=== PATIENT | female | born 1935 | race African-American/Black ===

== ENCOUNTER → 2016-05-15 | Outpatient (CLI) | payer MEDICARE, BC, OTHER ==
[2016-05-15 13:15] LABS: ANION GAP 11 (5-19); BLOOD UREA NITROGEN 16 mg/dL (7-20); CALCIUM 9.5 mg/dL (8.4-10.2); CARBON DIOXIDE 24 mmol/L (22-30); CHLORIDE 107 mmol/L (98-107); CREATININE RESULT 1.09 mg/dL (0.52-1.25); GLUCOSE 89 mg/dL (75-110); POTASSIUM 3.8 mmol/L (3.6-5.0); SODIUM 142.2 mmol/L (137-145)
== END ==
LOC: OD 11:37
PROVIDERS: ATTEND Ophthalmology
DX: I10 Essential (primary) hypertension (principal)
CPT/HCPCS: 36415; 80048

== ENCOUNTER 2016-08-31 12:13 | Emergency (ER) | payer MEDICARE, BC, OTHER ==
[2016-08-31 12:20] VITALS: BP 211/86
== END 2016-08-31 12:29 | disposition left against medical advice (07) ==
LOC: ER 12:13
DX: Z53.21 Procedure and treatment not carried out due to patient leaving prior to being seen by health care provider (principal)

== ENCOUNTER 2017-07-04 14:46 | Emergency (ER) | payer MEDICARE, BC, OTHER ==
--- NOTE | 2017-07-04 16:15 | ER Document Report ---
ED General - General Chief Complaint: Medication Refill Stated Complaint: FOOT PAIN Time Seen by Provider: 07/04/17 15:42 Mode of Arrival: Ambulatory Information source: Patient TRAVEL OUTSIDE OF THE [place] IN LAST 30 DAYS: No - HPI Patient complains to provider of: methadone refill Notes: Patient is here with complaints of bilateral feet pain. She states that she normally takes methadone which is prescribed by Dr. cadence Puckett at nighttime to help her sleep due to her chronic pain. She is currently out of her medication. She states that she has an appointment with them in 6 days. She is having trouble sleeping due to pain and is here requesting some pain medication. In reviewing her records, she has had 2 prescriptions of methadone filled in the last 6 months. She typically is able to make this medication last for over 3 months. She has no medication currently and is having trouble sleeping due to her pain. She denies any new injuries or falls. No fever or redness. No numbness, tingling, weakness. She denies any chest pain or shortness of breath. She denies any nausea, vomiting, diarrhea. No withdrawal type symptoms. She denies any other complaints at this time. - Related Data Allergies/Adverse Reactions: nalbuphine HCl [From Nubain] Allergy (Mild, Verified 07/04/17 14:51) itching codeine [Codeine] Allergy (Verified 07/04/17 14:51) Generalized Itching Past Medical History - Social History Smoking Status: Unknown if Ever Smoked Family History: Reviewed & Not Pertinent - Past Medical History Cardiac Medical History: Reports: Hx Hypertension - medicated Denies: Hx Heart Attack Pulmonary Medical History: Denies: Hx Asthma Neurological Medical History: Denies: Hx Cerebrovascular Accident, Hx Seizures Renal/ Medical History: Denies: Hx Peritoneal Dialysis GI Medical History: Reports: Hx Hiatal Hernia. Denies: Hx Hepatitis, Hx Ulcer Infectious Medical History: Denies: Hx Hepatitis Past Surgical History: Reports: Hx Hysterectomy. Denies: Hx Mastectomy, Hx Open Heart Surgery, Hx Pacemaker Review of Systems - Review of Systems -: Yes All other systems reviewed and negative Physical Exam - Vital signs Vitals: Temp Pulse Resp BP Pulse Ox 97.8 F 62 14 194/71 H 100 07/04/17 15:14 07/04/17 15:14 07/04/17 15:14 07/04/17 15:14 07/04/17 15:14 - Notes Notes: GENERAL: alert, cooperative, nontoxic, no distress. HEAD: normocephalic, atraumatic EYES: conjunctiva pink without discharge, no external redness or swelling. EARS: no external swelling, no external redness NOSE: atraumatic, no external swelling MOUTH/THROAT: mucous membranes moist and pink NECK: soft, supple, full range of motion, no meningismus. CHEST: no distress, lungs clear and equal throughout. No wheezing, rales, rhonchi. CARDIAC: regular rate and rhythm, no murmur, normal capillary refill, normal pulses. BACK: full range of motion, no CVA tenderness. EXTREMITIES: full range of motion of all extremities. No redness, no swelling. Normal pulses and sensation to the bilateral feet. No significant abnormality noted. NEURO: alert and oriented 3, no focal deficits, full range of motion of all extremities. PYSCH: appropriate mood, affect. Patient is cooperative. SKIN: pink, warm, dry, no rash. Course - Re-evaluation Re-evalutation: 07/04/17 16:11 Patient is nontoxic appearing with stable vitals. Patient is here with complaints of chronic feet pain. Dr. Alton Puckett and is given methadone, but she has not had any methadone and is having worsening pain and having difficulty sleeping so she is here requesting a refill of her methadone. In reviewing her records, she has had 2 prescriptions for methadone in the last 6 months by the same provider. This usually lasts her over 3 months. She has an appointment in 6 days with her pain specialist. Explained that typically from the emergency department we are unable to refill chronic pain medication. We are not able to refill methadone. I explained that she may have a pain contract with her doctor and that if she feels a prescription from another provider, she may be breaking his contract and be fired from the pain specialist practice. She states that she does not have any such contract. I will prescribe the patient 6 Wheaton that she can take at nighttime to help with her pain. She will be instructed that she can not come back to the emergency department for further refills of her pain medication but that we can help her out this 1 time. She verbalized an understanding of this. She has no signs of infection or other new injuries. She states that the pain she is having her feet is her normal chronic pain. The patient is noted to have elevated blood pressure during today's emergency department visit. The patient was informed of this finding. The patient was instructed that this may be related to pre-hypertension and requires further evaluation with a primary care provider. The patient has no hypertensive symptoms at this time. The patient's emergency department workup and current diagnosis were explained to the patient and or family. Follow-up instructions were provided. Medications if prescribed were discussed. Instructions for when to return to the emergency department including specific worrisome symptoms were discussed with the patient and/or family. - Vital Signs Vital signs: Temp Pulse Resp BP Pulse Ox 97.8 F 62 14 194/71 H 100 07/04/17 15:14 07/04/17 15:14 07/04/17 15:14 07/04/17 15:14 07/04/17 15:14 Discharge - Discharge Clinical Impression: Chronic foot pain Qualifiers: Laterality: unspecified laterality Qualified Code(s): M79.673 - Pain in unspecified foot; G89.29 - Other chronic pain; G89.29 - Other chronic pain Condition: Stable Disposition: HOME, SELF-CARE Instructions: Chronic Pain Control ([facility]) Additional Instructions: Take medication as prescribed. Follow-up with your doctor as scheduled on Friday. Follow-up sooner for increasing pain, fever, redness, numbness, tingling, weakness, chest pain, shortness of breath, or for any further concerns. Emergency department typically does not refill pain medication for chronic pain, he will need to see your doctor in order to have any further prescriptions. Your blood pressure was elevated during today's visit. Have this rechecked with your doctor. Prescriptions: Hydrocodone/Acetaminophen [Wheaton 5-325 mg Tablet] 1 tab PO QHS PRN #6 tab PRN Reason: Forms: Elevated Blood Pressure Referrals: [facility] [Provider Group] - Follow up as needed
[2017-07-04 16:47] VITALS: BP 182/78
== END 2017-07-04 16:47 | disposition home or self-care (01) ==
LOC: ER 14:46
DX: Z76.0 Encounter for issue of repeat prescription (principal); M79.671 Pain in right foot; M79.672 Pain in left foot; I10 Essential (primary) hypertension; G89.29 Other chronic pain
CPT/HCPCS: 99283

== ENCOUNTER 2017-07-19 04:51 | Emergency (ER) | payer MEDICARE, BC, OTHER ==
[2017-07-19] MEDS ORDERED: ASPIRIN 81 MG TABLET, CHEWABLE PO ONE (05:31)
--- NOTE | 2017-07-19 05:39 | ER Document Report ---
ED Medical Screen (RME) - General Chief Complaint: Pain All Over Stated Complaint: BODY ACHE /CHEST PAIN Mode of Arrival: Ambulatory Information source: Patient Notes: Patient is a 81-year-old female who presents with complaints of chest pain and bilateral leg pain. Patient reports that about 3-4 weeks ago her pain management doctor, Dr. Johnson in [place], took her off of her methadone that she has been taking for years. Patient reports that since this time she has been having worsening pain to her bilateral feet and extends up into her bilateral knees. Patient also reports that she has been having chest pain with nausea. Patient states that this is a nonradiating pain and describes as a "dry" pain. Patient denies any cardiac history. Patient reports that she does not have a primary care provider. I have greeted and performed a rapid initial assessment of this patient. A comprehensive ED assessment and evaluation of the patient, analysis of test results and completion of the medical decision making process will be conducted by additional ED providers. TRAVEL OUTSIDE OF THE [place] IN LAST 30 DAYS: No - Related Data Allergies/Adverse Reactions: nalbuphine HCl [From Nubain] Allergy (Mild, Verified 07/19/17 05:48) itching codeine [Codeine] Allergy (Verified 07/19/17 05:48) Generalized Itching Past Medical History - Past Medical History Cardiac Medical History: Reports: Hx Hypertension - medicated Denies: Hx Heart Attack Pulmonary Medical History: Denies: Hx Asthma Neurological Medical History: Denies: Hx Cerebrovascular Accident, Hx Seizures Renal/ Medical History: Denies: Hx Peritoneal Dialysis GI Medical History: Reports: Hx Hiatal Hernia. Denies: Hx Hepatitis, Hx Ulcer Infectious Medical History: Denies: Hx Hepatitis Past Surgical History: Reports: Hx Hysterectomy, Hx Orthopedic Surgery - back surgery. Denies: Hx Mastectomy, Hx Open Heart Surgery, Hx Pacemaker Physical Exam - Vital signs Vitals: Temp Pulse Resp BP Pulse Ox 98.3 F 90 18 185/98 H 99 07/19/17 05:01 07/19/17 05:01 07/19/17 05:01 07/19/17 05:01 07/19/17 05:01 - Cardiovascular Rhythm: Regular Heart sounds: S1 appreciated, S2 appreciated Pulses: Normal: Radial - Extremities General lower extremity: Normal inspection, Normal strength Course - Vital Signs Vital signs: Temp Pulse Resp BP Pulse Ox 98.3 F 98 18 185/98 H 99 07/19/17 05:01 07/19/17 05:32 07/19/17 05:01 07/19/17 05:01 07/19/17 05:01
--- NOTE | 2017-07-19 06:30 | ER Document Report ---
ED General Pain - General Chief Complaint: Pain All Over Stated Complaint: BODY ACHE /CHEST PAIN Time Seen by Provider: 07/19/17 05:39 Mode of Arrival: Ambulatory Notes: History of complain-81 years old female comes in with burning sensation of the feet and pain whenever she rates the leg to go to sleep. As long as the leg is down and walking the pain is less. She was here a few weeks ago and was given 6 tablets of gabapentin. She says when she took that pill she did not have any pain or discomfort. No injuries. REVIEW OF SYSTEMS: CONSTITUTIONAL : Denies fever, chills, or sweats. Denies recent illness. EENT: Denies eye, ear, throat, or mouth pain or symptoms. Denies nasal or sinus congestion or discharge. Denies throat, tongue, or mouth swelling or difficulty swallowing. CARDIOVASCULAR: Denies chest pain. Denies palpitations or racing or irregular heart beat. Denies ankle edema. RESPIRATORY: Denies cough, cold, or chest congestion. Denies shortness of breath, difficulty breathing, or wheezing. GASTROINTESTINAL: Denies abdominal pain or distention. Denies nausea, vomiting , or diarrhea. Denies blood in vomitus, stools, or per rectum. Denies black, tarry stools. Denies constipation. GENITOURINARY: Denies difficulty urinating, painful urination, burning, frequency, blood in urine, or discharge. FEMALE GENITOURINARY: Denies vaginal bleeding, heavy or abnormal periods, irregular periods. Denies vaginal discharge or odor. MUSCULOSKELETAL: Denies back or neck pain or stiffness. Denies joint pain or swelling. SKIN: Denies rash, lesions or sores. HEMATOLOGIC : Denies easy bruising or bleeding. LYMPHATIC: Denies swollen, enlarged glands. NEUROLOGICAL: Denies confusion or altered mental status. Denies passing out or loss of consciousness. Denies dizziness or lightheadedness. Denies headache. Denies weakness or paralysis or loss of use of either side. Denies problems with gait or speech. Denies sensory loss, numbness, or tingling. Denies seizures. PSYCHIATRIC: Denies anxiety or stress. Denies depression, suicidal ideation, or homicidal ideation. ALL OTHER SYSTEMS REVIEWED AND NEGATIVE. PHYSICAL EXAMINATION: GENERAL: Well-appearing, well-nourished and in no acute distress. HEAD: Atraumatic, normocephalic. EYES: Pupils equal round and reactive to light, extraocular movements intact, conjunctiva are normal. ENT: Nares patent, oropharynx clear without exudates. Moist mucous membranes. NECK: Normal range of motion, supple without lymphadenopathy LUNGS: Breath sounds clear to auscultation bilaterally and equal. No wheezes rales or rhonchi. HEART: Regular rate and rhythm without murmurs ABDOMEN: Soft, nontender, nondistended abdomen. No guarding, no rebound. No masses appreciated. Female : deferred Musculoskeletal: Normal range of motion, no pitting or edema. No cyanosis. Both dorsalis pedis pulses are normal and bounding. NEUROLOGICAL: Cranial nerves grossly intact. Normal speech, normal gait. Normal sensory, motor exams PSYCH: Normal mood, normal affect. SKIN: Warm, Dry, normal turgor, no rashes or lesions noted. Dictation was performed using [email or web address] voice recognition software TRAVEL OUTSIDE OF THE [place] IN LAST 30 DAYS: No - HPI Onset: Other - For a long time Onset/Duration: Gradual. denies: Sudden, Constant, Intermittent, Persistent, Waxing and waning, Better, Worse, Gone Quality of pain: Achy, Burning. denies: No pain, Cramping, Dull, Fullness, Pressure, Sharp, Stabbing, Throbbing, Other Severity: Moderate Pain Level: 3 Context: Chronic problem. denies: New onset, General body pain, Joint pain, Cold exposure, Recent physical stress, Recent emotional stress, Recent illness, Other Associated symptoms: denies: None, Fever, Chills, Sweating, Muscle aches, Other Exacerbated by: Supine. denies: Denies, Sitting, Standing, Movement, Walking, Coughing, Deep breathing, Food, Other Relieved by: Standing. denies: Denies, Supine, Sitting, Remaining still, Antacids, Food, Other Similar symptoms previously: Yes Recently seen / treated by doctor: Yes - Related Data Allergies/Adverse Reactions: nalbuphine HCl [From Nubain] Allergy (Mild, Verified 07/19/17 05:48) itching codeine [Codeine] Allergy (Verified 07/19/17 05:48) Generalized Itching Past Medical History - General Information source: Patient - Social History Smoking Status: Unknown if Ever Smoked Chew tobacco use (# tins/day): No Smoking Education Provided: No Frequency of alcohol use: None Drug Abuse: denies: None, Bath salts, Cocaine, Heroin, Marijuana, Methamphetamine, Prescription drugs, Other Lives with: Family Family History: Reviewed & Not Pertinent Patient has suicidal ideation: No Patient has homicidal ideation: No - Past Medical History Cardiac Medical History: Reports: Hx Hypertension - medicated Denies: Hx Heart Attack Pulmonary Medical History: Denies: Hx Asthma Neurological Medical History: Denies: Hx Cerebrovascular Accident, Hx Seizures Renal/ Medical History: Denies: Hx Peritoneal Dialysis GI Medical History: Reports: Hx Hiatal Hernia. Denies: Hx Hepatitis, Hx Ulcer Infectious Medical History: Denies: Hx Hepatitis Past Surgical History: Reports: Hx Hysterectomy, Hx Orthopedic Surgery - back surgery. Denies: Hx Mastectomy, Hx Open Heart Surgery, Hx Pacemaker Review of Systems - Review of Systems Constitutional: denies: No symptoms reported, See HPI, Chills, Diaphoresis, Fever, Malaise, Weakness, Other, Weight gain, Weight loss, Recent illness EENT: denies: No symptoms reported, See HPI, Eye pain, Eye discharge, Blurred vision, Tearing, Double vision, Ear pain, Ear discharge, Nose pain, Nose congestion, Nose discharge, Sinus pressure, Sinus discharge, Throat pain, Difficulty swallowing, Throat swelling, Mouth pain, Mouth swelling, Dental problem, Vertigo, Other Cardiovascular: denies: No symptoms reported, See HPI, Chest pain, Palpitations , Heart racing, Orthopnea, Dyspnea, Syncope, Dizziness, Lightheaded, Edema, Other, Paroxysmal Nocturnal Dysp Respiratory: denies: No symptoms reported, See HPI, Cough, Hurts to breathe, Hemoptysis, Short of breath, Sputum, Stridor, Wheezing, Other Gastrointestinal: denies: No symptoms reported, See HPI, Abdomen distended, Abdominal pain, Diarrhea, Nausea, Vomiting, Constipation, Blood streaked bowels , Poor appetite, Poor fluid intake, Blood in vomit, Black stools, Rectal bleeding, Last bowel movement, Fecal incontinence, Other Genitourinary: denies: No symptoms reported, See HPI, Burning, Dysuria, Discharge, Frequency, Flank pain, Hematuria, Incontinence, Pain, Urgency, Retention, Other Musculoskeletal: denies: No symptoms reported, See HPI, Back pain, Gout, Joint pain, Joint swelling, Muscle pain, Muscle stiffness, Neck pain, Deformity, Leg swelling, Ankle swelling, Other Skin: denies: No symptoms reported, See HPI, Change in color, Change in hair/ nails, Dryness, Lesions, Lumps, Rash, Other Hematologic/Lymphatic: denies: No symptoms reported, See HPI, Anemia, Blood clots, Easy bleeding, Easy bruising, Enlarged lymph nodes, Swollen glands, Other Neurological/Psychological: denies: No symptoms reported, See HPI, Confusion, Dementia, Depression, Hallucinations, Anxiety, Homicidal ideation, Sensory change, Weakness, Gait changes, Loss of power, Paralysis, Seizure, Lost consciousness, Headaches, Speech impairment, Numbness, Suicidal ideation, Tingling, Tremor, Other Physical Exam - Vital signs Vitals: Temp Pulse Resp BP Pulse Ox 98.3 F 90 18 185/98 H 99 07/19/17 05:01 07/19/17 05:01 07/19/17 05:01 07/19/17 05:01 07/19/17 05:01 - Notes Notes: Dictated Course - Re-evaluation Re-evalutation: 07/19/17 06:30 He was given gabapentin - Vital Signs Vital signs: Temp Pulse Resp BP Pulse Ox 98.3 F 98 18 185/98 H 99 07/19/17 05:01 07/19/17 05:32 07/19/17 05:01 07/19/17 05:01 07/19/17 05:01 Discharge - Discharge Clinical Impression: Peripheral neuropathy Qualifiers: Peripheral neuropathy type: polyneuropathy, unspecified Qualified Code(s): G62.9 - Polyneuropathy, unspecified Condition: Fair Disposition: HOME, SELF-CARE Instructions: Neuropathy ([facility]) Prescriptions: Gabapentin 300 mg PO BID #60 capsule
[2017-07-19] MEDS ORDERED: GABAPENTIN 300 MG CAPSULE PO ONE (06:33)
[2017-07-19 06:34] VITALS: BP 154/87
== END 2017-07-19 06:42 | disposition home or self-care (01) ==
LOC: ER 04:51
DX: G62.9 Polyneuropathy, unspecified (principal); R07.9 Chest pain, unspecified; I10 Essential (primary) hypertension; Z88.5 Allergy status to narcotic agent
CPT/HCPCS: 99283; A9270

== ENCOUNTER → 2017-12-15 | Outpatient (CLI) | payer MEDICARE, BC, OTHER ==
--- NOTE | 2017-12-15 21:58 | EKG REPORT ---
SEVERITY:- ABNORMAL ECG - SINUS RHYTHM LEFT VENTRICULAR HYPERTROPHY ABNORMAL T, CONSIDER ISCHEMIA, INFERIOR LEADS : Confirmed by: Lena Bonilla MD 15-Dec-2017 21:57:14
== END ==
LOC: RAD 14:46
PROVIDERS: ATTEND Physician Assistant
DX: Z79.891 Long term (current) use of opiate analgesic (principal)
CPT/HCPCS: 93005; 93010

== ENCOUNTER → 2017-12-15 | Outpatient (CLI) | payer MEDICARE, BC, OTHER | LOC: LAB 15:17 | PROVIDERS: ATTEND Physician Assistant | DX: Z51.81 Encounter for therapeutic drug level monitoring (principal); Z79.891 Long term (current) use of opiate analgesic | CPT/HCPCS: 36415; G0480; 80358 ==

== ENCOUNTER → 2018-01-06 | Outpatient (CLI) | payer MEDICARE, BC, OTHER ==
--- NOTE | 2018-01-06 09:30 | RADIOLOGY REPORT (SQ) ---
EXAM DESCRIPTION: CHEST PA/LATERAL COMPLETED DATE/TIME: 01/06/2018 9:07 am REASON FOR STUDY: PRE-OP COMPARISON: None. EXAM PARAMETERS: NUMBER OF VIEWS: two views TECHNIQUE: Digital Frontal and Lateral radiographic views of the chest acquired. RADIATION DOSE: NA LIMITATIONS: none FINDINGS: LUNGS AND PLEURA: No opacities, masses or pneumothorax. No pleural effusion. MEDIASTINUM AND HILAR STRUCTURES: No masses or contour abnormalities. HEART AND VASCULAR STRUCTURES: Heart normal size. No evidence for failure. BONES: No acute findings. HARDWARE: None in the chest. OTHER: No other significant finding. IMPRESSION: NO SIGNIFICANT RADIOGRAPHIC FINDING IN THE CHEST. TECHNICAL DOCUMENTATION: JOB ID: [id number] [employer]- All Rights Reserved Reading location - IP/workstation name: [email or web address]
[2018-01-06 09:51] LABS: ABSOLUTE EOSINOPHILS # (AUTO) 0.2 10^3/uL (0.0-0.6); ABSOLUTE LYMPHOCYTES (AUTO) 2.1 10^3/uL (0.5-4.7); ABSOLUTE MONOCYTES (AUTO) 0.5 10^3/uL (0.1-1.4); ABSOLUTE NEUT (AUTO) 3.5 10^3/uL (1.7-8.2); BASOPHILS % (AUTO) 0.4 % (0-2); EOSINOPHILS % (AUTO) 2.6 % (0-6); HEMOGLOBIN 11.7 g/dL (12.0-15.5); LYMPHOCYTES % (AUTO) 33.4 % (13-45); MEAN CORPUSCULAR HEMOGLOBIN 27.9 pg (27.0-33.4); MEAN CORPUSCULAR HGB CONC 33.5 g/dL (32.0-36.0); MEAN CORPUSCULAR VOLUME 83 fl (80-97); MONOCYTES % (AUTO) 7.2 % (3-13); PLATELET COUNT 208 10^3/uL (150-450); RED CELL DISTRIBUTION WIDTH 16.2 % (11.5-14.0); SEGMENTED NEUTROPHILS % (AUTO) 56.4 % (42-78); TOTAL CELLS COUNTED % (AUTO) 100 %; WHITE BLOOD COUNT 6.3 10^3/uL (4.0-10.5)
[2018-01-06 10:10] LABS: APPEARANCE,URINE SLIGHTLY-CLOUDY; BILIRUBIN,URINE NEGATIVE (NEGATIVE); GLUCOSE, URINE NEGATIVE (NEGATIVE); KETONES,URINE NEGATIVE (NEGATIVE); LEUKOCYTE ESTERASE,URINE NEGATIVE (NEGATIVE); NITRITE,URINE NEGATIVE (NEGATIVE); PROTEIN,URINE 30 mg/dL (NEGATIVE); URINE SPECIFIC GRAVITY 1.024
[2018-01-06 10:12] LABS: COLOR,URINE YELLOW
[2018-01-06 10:20] LABS: ANION GAP 10 (5-19); BLOOD UREA NITROGEN 11 mg/dL (7-20); CALCIUM 9.1 mg/dL (8.4-10.2); CARBON DIOXIDE 30 mmol/L (22-30); CHLORIDE 102 mmol/L (98-107); GLUCOSE 96 mg/dL (75-110); POTASSIUM 3.7 mmol/L (3.6-5.0); SODIUM 141.7 mmol/L (137-145)
--- NOTE | 2018-01-06 13:06 | EKG REPORT ---
SEVERITY:- ABNORMAL ECG - SINUS RHYTHM LEFT VENTRICULAR HYPERTROPHY BORDERLINE T ABNORMALITIES, INFERIOR LEADS : Confirmed by: Clinton Anaya MD 06-Jan-2018 13:05:35
== END ==
LOC: OD 08:19
PROVIDERS: ATTEND Orthopaedic Surgery
DX: Z01.810 Encounter for preprocedural cardiovascular examination (principal); Z01.812 Encounter for preprocedural laboratory examination; Z01.818 Encounter for other preprocedural examination
CPT/HCPCS: 36415; 71046; 80048; 81001; 85025; 93005; 93010

== ENCOUNTER 2019-04-15 13:27 | Emergency (ER) | payer MEDICARE, BC, OTHER ==
[2019-04-15 13:44] VITALS: BP 162/88
--- NOTE | 2019-04-15 14:36 | ER Document Report ---
ED Medical Screen (RME) - General Chief Complaint: Eye Pain Stated Complaint: LEFT EYE PAIN Time Seen by Provider: 04/15/19 14:05 Primary Care Provider: SEU MAYS MD [Primary Care Provider] - Follow up as needed Mode of Arrival: Ambulatory Information source: Patient Notes: 83-year-old female patient presenting to the emergency department with concern for possible foreign body to the left eye. Patient reports she fell approximately 1 week ago, since that time she has felt like there is something scratching her eyeball. She denies any visual changes. She does report a history of cataracts, states she had surgery done 6 months ago. Questionable FB noted to L eye near 3 o'clock location I have greeted and performed a rapid initial assessment of this patient. A comprehensive ED assessment and evaluation of the patient, analysis of test results and completion of the medical decision making process will be conducted by additional ED providers. I have specifically instructed the patient or family members with the patient to immediately return to any nursing staff should anything change in the patient's condition or with their chief complaint. TRAVEL OUTSIDE OF THE [place] IN LAST 30 DAYS: No - Related Data Allergies/Adverse Reactions: nalbuphine HCl [From Nubain] Allergy (Mild, Verified 01/26/18 11:36) itching codeine [Codeine] Allergy (Verified 01/26/18 11:36) Generalized Itching Home Medications: Amlodipine. oxycodone/acetaminophen. Gabapentin Past Medical History - Social History Frequency of alcohol use: None Drug Abuse: None - Past Medical History Cardiac Medical History: Reports: Hx Hypercholesterolemia, Hx Hypertension Denies: Hx Atrial Fibrillation, Hx Congestive Heart Failure, Hx Coronary Artery Disease, Hx Heart Attack, Hx Peripheral Vascular Disease, Hx Heart Murmur Pulmonary Medical History: Denies: Hx Asthma, Hx Bronchitis, Hx COPD, Hx Sleep Apnea Neurological Medical History: Denies: Hx Cerebrovascular Accident, Hx Seizures Endocrine Medical History: Denies: Hx Hyperthyroidism, Hx Hypothyroidism Renal/ Medical History: Denies: Hx Kidney Stones, Hx Peritoneal Dialysis GI Medical History: Reports: Hx Hiatal Hernia. Denies: Hx Gastroesophageal Reflux Disease, Hx Hepatitis, Hx Ulcer Musculoskeltal Medical History: Reports Hx Arthritis, Denies Hx Fibromyalgia, Denies Hx Muscular Dystrophy Psychiatric Medical History: Denies: Hx Bipolar Disorder, Hx Depression, Hx Post Traumatic Stress Disorder Traumatic Medical History: Denies: Hx Fractures Infectious Medical History: Denies: Hx Hepatitis Past Surgical History: Reports: Hx Hysterectomy, Hx Orthopedic Surgery - back surgery. Denies: Hx Appendectomy, Hx Bowel Surgery, Hx Section, Hx Cholecystectomy, Hx Coronary Artery Bypass Graft, Hx Gastric Bypass Surgery, Hx Herniorrhaphy, Hx Mastectomy, Hx Open Heart Surgery, Hx Pacemaker, Hx Tonsillectomy, Hx Tubal Ligation Physical Exam - Vital signs Vitals: Temp Pulse Resp BP Pulse Ox 98.9 F 67 16 162/88 H 98 04/15/19 13:42 04/15/19 13:42 04/15/19 13:42 04/15/19 13:42 04/15/19 13:42 Course - Vital Signs Vital signs: Temp Pulse Resp BP Pulse Ox 98.9 F 67 16 162/88 H 98 04/15/19 13:42 04/15/19 13:42 04/15/19 13:42 04/15/19 13:42 04/15/19 13:42 Doctor's Discharge - Discharge Referrals: SUE MAYS MD [Primary Care Provider] - Follow up as needed
== END 2019-04-15 20:10 | disposition left against medical advice (07) ==
LOC: ER 13:27
DX: H57.12 Ocular pain, left eye (principal); I10 Essential (primary) hypertension; Z79.899 Other long term (current) drug therapy; Z79.891 Long term (current) use of opiate analgesic; Z88.6 Allergy status to analgesic agent; Z88.5 Allergy status to narcotic agent; Z53.20 Procedure and treatment not carried out because of patient's decision for unspecified reasons
CPT/HCPCS: 99281